=== PATIENT | female | born 2000 | race African-American/Black ===

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

== ENCOUNTER 2018-03-07 21:59 | Emergency (ER) | payer MEDICAID ==
[2018-03-07 22:06] VITALS: BP 121/77
--- NOTE | 2018-03-07 23:02 | RADIOLOGY REPORT (SQ) ---
EXAM DESCRIPTION: XR KNEE 4 OR MORE VIEWS COMPLETED DATE/TME: 03/07/2018 22:04 CLINICAL HISTORY: 17 years Female, fall COMPARISON: None. Findings: Small left knee effusion. Bones, joints, and soft tissues of the LEFT XR KNEE 4 OR MORE VIEWS appear otherwise intact. IMPRESSION: Small left knee effusion.
--- NOTE | 2018-03-07 23:54 | ER Document Report ---
ED Extremity Problem, Lower - General Chief Complaint: Knee Pain Stated Complaint: FALL/KNEE PAIN Time Seen by Provider: 03/07/18 23:39 Mode of Arrival: Ambulatory Information source: Patient Notes: Patient is a 17-year-old female presenting to the emergency department complaining of left knee pain. Patient stated she was playing with friends when she slipped and fell backwards falling on her buttocks, twisting her left knee. Patient stated she heard a pop and had immediate pain and was only able to put a small amount of weight on the left leg. Patient denies hitting head, headache, LOC. Patient has history of asthma takes albuterol as needed. Allergies to aspirin and Excedrin. TRAVEL OUTSIDE OF THE [place] IN LAST 30 DAYS: No - Related Data Allergies/Adverse Reactions: aspirin Allergy (Verified 03/07/18 22:02) Excedrin Allergy (Uncoded 06/09/17 02:29) Past Medical History - General Information source: Patient - Social History Smoking Status: Unknown if Ever Smoked Lives with: Family Family History: Reviewed & Not Pertinent Patient has suicidal ideation: No Patient has homicidal ideation: No Pulmonary Medical History: Reports: Hx Asthma Neurological Medical History: Reports: Hx Migraine Renal/ Medical History: Denies: Hx Peritoneal Dialysis Past Surgical History: Reports: Hx Oral Surgery - Immunizations Immunizations up to date: Yes Hx Diphtheria, Pertussis, Tetanus Vaccination: Yes Review of Systems - Review of Systems EENT: No symptoms reported Cardiovascular: No symptoms reported Respiratory: No symptoms reported Gastrointestinal: No symptoms reported Genitourinary: No symptoms reported Female Genitourinary: No symptoms reported Musculoskeletal: See HPI Skin: See HPI Hematologic/Lymphatic: No symptoms reported Neurological/Psychological: No symptoms reported Physical Exam - Vital signs Vitals: Temp Pulse Resp BP Pulse Ox 98.2 F 92 H 19 121/77 100 03/07/18 22:04 03/07/18 22:04 03/07/18 22:04 03/07/18 22:04 03/07/18 22:04 - Notes Notes: GENERAL: Alert, interacts well. No acute distress. HEAD: Normocephalic, atraumatic. EYES: Pupils equal, round, and reactive to light. Extraocular movements intact. ENT: Oral mucosa moist, tongue midline. NECK: Full range of motion. Supple. Trachea midline. LUNGS: Clear to auscultation bilaterally, no wheezes, rales, or rhonchi. No respiratory distress. HEART: Regular rate and rhythm. No murmur ABDOMEN: Soft, non-tender. Non-distended. Bowel sounds present in all 4 quadrants. EXTREMITIES: Moves all 4 extremities spontaneously. normal radial and dorsalis pedis pulses bilaterally. Minor swelling left knee, no ecchymosis noted. Anterior drawer, valgus, varus movements elicit pain left knee. Left hip and ankle within normal limits. Patient refuses to bear weight left leg stating knee hurts. BACK: no cervical, thoracic, lumbar midline tenderness. No saddle anesthesia, normal distal neurovascular exam. NEUROLOGICAL: Alert and oriented x3. Normal speech. PSYCH: Normal affect, normal mood. SKIN: Warm, dry, normal turgor. No rashes or lesions noted. Course - Re-evaluation Re-evalutation: X-ray within normal limits. Talked to patient about need for follow-up with Ortho Eval should pain in the knee not resolved. Due to pain upon anterior drawer, varus, valgus movement well immobilized in place patient with crutches. Return precautions given - Vital Signs Vital signs: Temp Pulse Resp BP Pulse Ox 98.2 F 92 H 19 121/77 100 03/07/18 22:04 03/07/18 22:04 03/07/18 22:04 03/07/18 22:04 03/07/18 22:04 Discharge - Discharge Clinical Impression: Knee injury Condition: Stable Disposition: HOME, SELF-CARE Instructions: Use of Crutches ([facility]), Ice & Elevation ([facility]), Knee Immobilizing Splint ([facility]), Sprained Knee ([facility]) Forms: Return to Work Referrals: HANNAH TAVERAS MD [Primary Care Provider] - Follow up as needed CE CAMPBELL MD [ACTIVE STAFF] - Follow up as needed
== END 2018-03-08 01:03 | disposition home or self-care (01) ==
LOC: ER 21:59
DX: S89.92XA Unspecified injury of left lower leg, initial encounter (principal); W01.0XXA Fall on same level from slipping, tripping and stumbling without subsequent striking against object, initial encounter
CPT/HCPCS: 99283; 73564; L1830

== ENCOUNTER 2019-03-14 18:16 | Emergency (ER) | payer MEDICAID ==
[2019-03-14 18:46] VITALS: BP 112/67
== END 2019-03-14 18:45 | disposition left against medical advice (07) ==
LOC: ER 18:16
DX: Z53.21 Procedure and treatment not carried out due to patient leaving prior to being seen by health care provider (principal)

== ENCOUNTER 2020-03-22 14:06 | Emergency (ER) | payer SELFPAY ==
--- NOTE | 2020-03-22 14:21 | ER Document Report ---
ED Medical Screen (RME) - General Chief Complaint: Sore Throat Stated Complaint: SORE THROAT,COUGH,BODY ACHES Time Seen by Provider: 03/22/20 14:16 Primary Care Provider: HANNAH TAVERAS MD [Primary Care Provider] - Follow up as needed Mode of Arrival: Ambulatory Information source: Patient Notes: HPI; 19-year-old female presents to the emergency room complaining of general body aches cough, chest congestion, and a subjective fever for 6 days. No recent travel. No COVID-19 exposure. Has been using [id number] TheraFlu, NyQuil, and DayQuil without relief. No other ill contacts. PE: Alert and oriented x3. Mild distress noted. Lungs: Clear to auscultation without rales, rhonchi, wheezes. Heart: Tachycardic without murmurs, rubs, gallops. I have greeted and performed a rapid initial assessment of this patient. A comprehensive ED assessment and evaluation of the patient, analysis of test results and completion of the medical decision making process will be conducted by additional ED providers. I have specifically instructed the patient or family members with the patient to immediately return to any nursing staff should anything change in the patient's condition or with their chief complaint. TRAVEL OUTSIDE OF THE [place] IN LAST 30 DAYS: No - Related Data Allergies/Adverse Reactions: aspirin Allergy (Verified 03/14/19 18:28) Excedrin Allergy (Uncoded 03/14/19 18:28) Past Medical History - Past Medical History Cardiac Medical History: Reports: Hx Atrial Fibrillation Pulmonary Medical History: Reports: Hx Asthma Neurological Medical History: Reports: Hx Migraine Renal/ Medical History: Denies: Hx Peritoneal Dialysis Past Surgical History: Reports: Hx Oral Surgery - Immunizations Immunizations up to date: Yes Hx Diphtheria, Pertussis, Tetanus Vaccination: Yes Doctor's Discharge - Discharge Referrals: HANNAH TAVERAS MD [Primary Care Provider] - Follow up as needed
--- NOTE | 2020-03-22 14:55 | ER Document Report ---
ED ENT - General Chief Complaint: Sore Throat Stated Complaint: SORE THROAT,COUGH,BODY ACHES Time Seen by Provider: 03/22/20 14:16 Primary Care Provider: HANNAH TAVERAS MD [Primary Care Provider] - Follow up as needed Mode of Arrival: Ambulatory Information source: Patient Notes: 19-year-old -[place] female presenting with subjective fevers, body aches, headaches, and sore throat. Symptoms for the past 2 to 3 days. She has history of asthma which is treated with inhaled corticosteroids and beta agonists. States that she has had to use her rescue inhaler more often than usual. Otherwise denies nausea vomiting and diarrhea. He has no sick contacts. No history of any immune compromise TRAVEL OUTSIDE OF THE [place] IN LAST 30 DAYS: No - Related Data Allergies/Adverse Reactions: aspirin Allergy (Verified 03/22/20 14:43) Excedrin Allergy (Uncoded 03/22/20 14:43) Past Medical History - General Information source: Patient - Social History Smoking Status: Unknown if Ever Smoked Family History: Reviewed & Not Pertinent - Past Medical History Cardiac Medical History: Reports: Hx Atrial Fibrillation Pulmonary Medical History: Reports: Hx Asthma Neurological Medical History: Reports: Hx Migraine Renal/ Medical History: Denies: Hx Peritoneal Dialysis Past Surgical History: Reports: Hx Oral Surgery - Immunizations Immunizations up to date: Yes Hx Diphtheria, Pertussis, Tetanus Vaccination: Yes Review of Systems - Review of Systems Notes: Constitutional: No fevers. No chills. EENT: No eye redness. No eye pain. No ear pain. +sore throat. Cardiovascular: No chest pain. No palpitations. Respiratory: No cough. No shortness of breath. No respiratory distress. +INCREASED WHEEZING Gastrointestinal: No abdominal pain. No nausea, vomiting, or diarrhea. Genitourinary: Atraumatic. No lesions. No pain. No discharge. Musculoskeletal: Atraumatic. No swelling. No deformities. Skin: No rash or lesions. Lymphatic: No swollen lymph nodes. Neurologic: +headache. No syncope. Psychiatric: No suicidal or homicidal ideation. Physical Exam - Vital signs Vitals: Temp Pulse Resp BP Pulse Ox 98.5 F 93 16 120/80 98 03/22/20 14:22 03/22/20 14:22 03/22/20 14:22 03/22/20 14:22 03/22/20 14:22 - Notes Notes: General: Well-developed, well-nourished. In no acute distress. Non-toxic appearing. Cardiac: Well-perfused. Regular rate and rhythm. No murmurs, rubs, or gallops. Pulmonary: No respiratory distress. No cyanosis. Bilateral lung braxton are clear to auscultation. Abdominal: Non-distended. Non-rigid. Bowels sounds are present in all four quadrants. No guarding or rebound. HEENT: Head is atraumatic. Conjunctivae not reddened. No tearing. PERRL. EOMI. Orbits atraumatic. No periorbital swelling or erythema. Oropharynx is without erythema, swelling, or exudates. Neck: Supple. No adenopathy. No meningismus. Dermatologic: Warm with good turgor. No rash. Atraumatic. Chest: Atraumatic. No chest wall tenderness to palpation. Musculoskeletal: Moves all extremities well. No range of motion deficits. no muscular or joint tenderness. No paraspinal muscle tenderness. no midline spinal tenderness or step-off. Genitourinary: Examination deferred Neurologic: No gross neurologic deficits. Psychiatric: Normal mood. Course - Re-evaluation Re-evalutation: 03/22/20 15:11 Strep test negative. Influenza test negative. COVID screening pending. Chest x-ray negative for infiltrates. Given patient's history of asthma and exacerbation of her breathing, will start her on dexamethasone daily for 7 days. She does not have a productive cough at this time. We will hold off on antibiotics for the time being. COVID test will be back in 3 days. Patient is instructed to quarantine for the time being until she knows for sure. - Vital Signs Vital signs: Temp Pulse Resp BP Pulse Ox 98.5 F 93 16 120/80 98 03/22/20 14:22 03/22/20 14:22 03/22/20 14:22 03/22/20 14:22 03/22/20 14:22 Discharge - Discharge Clinical Impression: Viral syndrome Asthma exacerbation Qualifiers: Asthma severity: unspecified severity Asthma persistence: unspecified Qualified Code(s): J45.901 - Unspecified asthma with (acute) exacerbation Condition: Good Disposition: HOME, SELF-CARE Instructions: Viral Syndrome ([facility]), COVID-19 Guidance for Persons Under Investigation Additional Instructions: Continue to quarantine yourself at home until you know for sure whether or not you have coronavirus. Treat your fever with Tylenol and ibuprofen. Drink plenty of clear fluids. Dexamethasone daily to improve your breathing. Continue current medications. Prescriptions: Dexamethasone [Decadron 4 mg Tablet] 4 mg PO DAILY 7 Days #7 tablet Referrals: HANNAH TAVERAS MD [Primary Care Provider] - Follow up as needed
[2020-03-22 14:58] LABS: A TYPE INFLUENZA AG NEGATIVE (NEGATIVE); B INFLUENZA AG NEGATIVE (NEGATIVE)
--- NOTE | 2020-03-22 15:10 | RADIOLOGY REPORT (SQ) ---
EXAM DESCRIPTION: CHEST SINGLE VIEW IMAGES COMPLETED DATE/TIME: 03/22/2020 2:39 pm REASON FOR STUDY: cough COMPARISON: None. NUMBER OF VIEWS: One view. TECHNIQUE: Single frontal radiographic view of the chest acquired. LIMITATIONS: None. FINDINGS: LUNGS AND PLEURA: No opacities, masses or pneumothorax. No pleural effusion. MEDIASTINUM AND HILAR STRUCTURES: No masses. Contour normal. HEART AND VASCULAR STRUCTURES: Heart normal in size. Normal vasculature. BONES: No acute findings. HARDWARE: None in the chest. OTHER: No other significant finding. IMPRESSION: NO SIGNIFICANT RADIOGRAPHIC FINDING IN THE CHEST. TECHNICAL DOCUMENTATION: JOB ID: [id number] 2010 [employer]- All Rights Reserved Reading location - IP/workstation name: [email or web address]
[2020-03-22 15:58] VITALS: BP 121/79
== END 2020-03-22 15:56 | disposition home or self-care (01) ==
LOC: ER 14:06
DX: U07.1 COVID-19 (principal); R51 Headache; J02.9 Acute pharyngitis, unspecified; J45.901 Unspecified asthma with (acute) exacerbation; Z79.51 Long term (current) use of inhaled steroids; Z79.899 Other long term (current) drug therapy; Z88.8 Allergy status to other drugs, medicaments and biological substances
CPT/HCPCS: 99284; 87070; 87880; 87635; 87804; 71045; C9803

== ENCOUNTER 2020-03-26 16:10 | Emergency (ER) | payer SELFPAY ==
[2020-03-26 17:04] VITALS: BP 117/71
--- NOTE | 2020-03-26 17:25 | ER Document Report ---
ED Respiratory Problem - General Chief Complaint: Chest Pain Stated Complaint: CHEST PAIN/COUGH Time Seen by Provider: 03/26/20 16:42 Primary Care Provider: HANNAH TAVERAS MD [Primary Care Provider] - Follow up as needed Notes: CHIEF COMPLAINT: Cough and shortness of breath HPI: 19-year-old female diagnosed with positive COVID test 2 days ago when she presented for cough with shortness of breath presenting again because she still has cough and shortness of breath. No fever. States that she was placed on Decadron. States that she does have an albuterol nebulizer at home which she is using every 6 hours. No chest pain except with coughing episodes ROS: See HPI - all other systems were reviewed and are otherwise negative Constitutional: no fever Eyes: no drainage, no blurred vision ENT: no runny nose, no sore throat Cardiovascular: Positive chest pain with cough only Resp: + SOB, + cough GI: no vomiting, no diarrhea, no abdominal pain : no dysuria Integumentary: no rash Allergy: no hives Musculoskeletal: no extremity pain or swelling Neurological: no numbness/tingling, no weakness MEDICATIONS: I agree with the patient medications as charted by the RN. ALLERGIES: I agree with the allergies as charted by the RN. PAST MEDICAL HISTORY/PAST SURGICAL HISTORY: Reviewed and agree as charted by RN. SOCIAL HISTORY: Reviewed and agree as charted by RN. FAMILY HISTORY: No significant familial comorbid conditions directly related to patient complaint EXAM: Reviewed vital signs as charted by RN. CONSTITUTIONAL: Alert and oriented and responds appropriately to questions. Well-appearing; well-nourished HEAD: Normocephalic; atraumatic EYES: PERRL; Conjunctivae clear, sclerae non-icteric ENT: normal nose; no rhinorrhea; moist mucous membranes; pharynx without lesions noted, no uvula edema or deviation, no tonsillar hypertrophy, phonation normal NECK: Supple without meningismus; non-tender; no cervical lymphadenopathy, no masses CARD: RRR; no murmurs, no clicks, no rubs, no gallops; symmetric distal pulses RESP: Normal chest excursion without splinting or tachypnea; breath sounds clear and equal bilaterally; no wheezes, no rhonchi, no rales, pulse oximetry 98% on room air not hypoxic. Spastic cough noted ABD/GI: Normal bowel sounds; non-distended; soft, non-tender, no rebound, no guarding; no palpable organomegaly or masses. BACK: The back appears normal and is non-tender to palpation, there is no CVA tenderness EXT: Normal ROM in all joints; non-tender to palpation; no cyanosis, no effusions, no edema SKIN: Normal color for age and race; warm; dry; good turgor; no acute lesions noted NEURO: Moves all extremities equally; Motor and sensory function intact PSYCH: The patient's mood and manner are appropriate. Grooming and personal hygiene are appropriate. MDM: 19-year-old female presenting for evaluation of cough and shortness of breath. Lungs are clear to auscultation not hypoxic not tachypneic does not become dyspneic with speaking. Will obtain chest x-ray given recent COVID diagnosis. Is on dexamethasone has albuterol at home which she is using every 6 hours should use every 4 hours. If chest x-ray does not show evidence of infiltrate will have patient increase her albuterol use follow-up PCP TRAVEL OUTSIDE OF THE [place] IN LAST 30 DAYS: No - Related Data Allergies/Adverse Reactions: aspirin Allergy (Verified 03/22/20 14:43) Excedrin Allergy (Uncoded 03/22/20 14:43) Past Medical History - Social History Smoking Status: Never Smoker Chew tobacco use (# tins/day): No Frequency of alcohol use: None Drug Abuse: None Family History: Reviewed & Not Pertinent - Past Medical History Cardiac Medical History: Reports: Hx Atrial Fibrillation Pulmonary Medical History: Reports: Hx Asthma Neurological Medical History: Reports: Hx Migraine Renal/ Medical History: Denies: Hx Peritoneal Dialysis Past Surgical History: Reports: Hx Oral Surgery - Immunizations Immunizations up to date: Yes Hx Diphtheria, Pertussis, Tetanus Vaccination: Yes Physical Exam - Vital signs Vitals: Temp 99.2 F 03/26/20 16:53 Course - Re-evaluation Re-evalutation: 03/26/20 17:34 X-ray on my review does not reveal evidence of significant infiltrate or pneumothorax 03/26/20 17:55 Chest x-ray does not show evidence of infiltrate per the radiologist. Will discharge home with return instructions. On reexamination patient again is not dyspneic on speaking. Heart rate 102. - Vital Signs Vital signs: Temp Pulse Resp BP Pulse Ox 99.2 F 110 H 16 117/71 98 03/26/20 17:02 03/26/20 17:02 03/26/20 17:02 03/26/20 17:02 03/26/20 17:02 Discharge - Discharge Clinical Impression: Dyspnea Qualifiers: Dyspnea type: other forms of dyspnea Qualified Code(s): R06.09 - Other forms of dyspnea Condition: Stable Disposition: HOME, SELF-CARE Additional Instructions: Use your nebulizer at home with your albuterol every 4 hours to help with shortness of breath. Finish the Decadron you were previously prescribed. Follow-up with your primary care provider for reevaluation of symptoms call for appointment. Chest x-ray today did not show evidence of an infiltrate or pneumonia. Return for worsening symptoms as discussed Referrals: HANNAH TAVERAS MD [Primary Care Provider] - Follow up as needed
--- NOTE | 2020-03-26 17:54 | RADIOLOGY REPORT (SQ) ---
EXAM DESCRIPTION: CHEST SINGLE VIEW IMAGES COMPLETED DATE/TIME: 03/26/2020 5:34 pm REASON FOR STUDY: cough + covid COMPARISON: 03/22/2020. EXAM PARAMETERS: NUMBER OF VIEWS: One view. TECHNIQUE: Single frontal radiographic view of the chest acquired. RADIATION DOSE: NA LIMITATIONS: None. FINDINGS: LUNGS AND PLEURA: No opacities, masses or pneumothorax. No pleural effusion. MEDIASTINUM AND HILAR STRUCTURES: No masses. Contour normal. HEART AND VASCULAR STRUCTURES: Heart normal in size. Normal vasculature. BONES: No acute findings. HARDWARE: None in the chest. OTHER: No other significant finding. IMPRESSION: NO ACUTE RADIOGRAPHIC FINDING IN THE CHEST. TECHNICAL DOCUMENTATION: JOB ID: [id number] 2010 [employer]- All Rights Reserved Reading location - IP/workstation name: [email or web address]
== END 2020-03-26 18:08 | disposition home or self-care (01) ==
LOC: ER 16:10
DX: U07.1 COVID-19 (principal); J45.909 Unspecified asthma, uncomplicated; R05 Cough; R06.02 Shortness of breath; Z79.899 Other long term (current) drug therapy; Z88.8 Allergy status to other drugs, medicaments and biological substances
CPT/HCPCS: 71045; 99283